=== PATIENT | male | born 1945 | race Two or more races ===

== ENCOUNTER 2017-04-28 20:00 | Emergency (ER) | payer OTHER ==
[~2017-04-28] VITALS: Ht 165.1 cm; Wt 65.8 kg
[~2017-04-28 20:00] MED LIST: CIPRO500 MG PO; DICLOXACILLIN500 MG PO; HUMALOG KW100 UNIT/1; INVOKANA100 MG; LANTUS100 U/ML; NOVOLOG100 U/ML; TAMSULOSIN HCL0.4 MG PO; TRAMADOL HCL50 MG PO
[2017-04-29] MEDS ORDERED: DOXYCYCLINE HY100 MG PO (13:19)
== END 2017-04-29 13:39 | disposition home or self-care (01) ==
LOC: ER 20:00
DX: R22.1 Localized swelling, mass and lump, neck (principal); R50.9 Fever, unspecified; E11.22 Type 2 diabetes mellitus with diabetic chronic kidney disease; I12.9 Hypertensive chronic kidney disease with stage 1 through stage 4 chronic kidney disease, or unspecified chronic kidney disease; N18.4 Chronic kidney disease, stage 4 (severe)

== ENCOUNTER 2017-08-04 09:37 | Emergency (ER) | payer OTHER ==
[~2017-08-04] VITALS: Ht 165.1 cm; Wt 67.1 kg
[~2017-08-04 09:37] MED LIST changes: +DOXYCYCLINE HY100 MG PO
== END 2017-08-04 16:00 | disposition home or self-care (01) ==
LOC: ER 09:37
DX: K29.60 Other gastritis without bleeding (principal); K29.80 Duodenitis without bleeding

== ENCOUNTER → 2017-09-20 | Emergency (ER) | payer OTHER ==
[~2017-09-20] VITALS: Ht 165.1 cm; Wt 65.8 kg
[~2017-09-20] MED LIST changes: +DIOVAN40 MG; +DOXYCYCLINE HY100 MG; +ENALAPRIL MALEA10 MG; +FLUCONAZOLE100 MG; +MECLIZINE HCL12.5 MG
== END | disposition home or self-care (01) ==
LOC: ER 17:07
DX: R42 Dizziness and giddiness (principal)

== ENCOUNTER 2017-10-20 18:07 | Inpatient (IN) | payer OTHER ==
[~2017-10-20] VITALS: Ht 165.1 cm; Wt 66.2 kg
[2017-12-06] MEDS ORDERED: INTEGRA F CAPS1 EACH PO (11:10)
[2017-12-06] MEDS ORDERED: TAMSULOSIN HCL0.4 MG PO (11:10)
[2017-12-06] MEDS ORDERED: PAROXETINE HCL10 MG PO (11:11)
[2017-12-06] MEDS ORDERED: SIMVASTATIN10 MG PO (11:11)
[2017-12-06] MEDS ORDERED: AVAPRO150 MG PO (11:11)
[2017-12-06] MEDS ORDERED: SLOW-MAG64 M1 PO (11:12)
[2017-12-06] MEDS ORDERED: CARdura 2MG TABLET PO (11:13)
[2017-12-06] MEDS ORDERED: NeurRONTin 100mg cap PO (11:13)
[2017-12-06] MEDS ORDERED: Intestinex CAP PO (11:13)
== END 2017-12-06 19:08 | disposition home health service (06) | DRG 264 ==
LOC: ER 18:07 → MEDJ 23:03 → SEC-K 23:03 → MEDJ 10-21 13:43
PROC: B44HZZZ Ultrasonography of Bilateral Lower Extremity Arteries (ICD-10-PCS; 2017-10-20)
PROC: 8E0ZXY6 Isolation (ICD-10-PCS; 2017-10-20)
PROC: BQ3MZZZ Magnetic Resonance Imaging (MRI) of Left Foot (ICD-10-PCS; 2017-10-21)
PROC: 0JBR0ZZ Excision of Left Foot Subcutaneous Tissue and Fascia, Open Approach (ICD-10-PCS; principal; 2017-10-29)
PROC: 30233N1 Transfusion of Nonautologous Red Blood Cells into Peripheral Vein, Percutaneous Approach (ICD-10-PCS; 2017-11-05)
PROC: 0JBR0ZZ Excision of Left Foot Subcutaneous Tissue and Fascia, Open Approach (ICD-10-PCS; 2017-11-09)
PROC: 02HV33Z Insertion of Infusion Device into Superior Vena Cava, Percutaneous Approach (ICD-10-PCS; 2017-11-22)
DX: E11.52 Type 2 diabetes mellitus with diabetic peripheral angiopathy with gangrene (principal); L97.528 Non-pressure chronic ulcer of other part of left foot with other specified severity; I70.262 Atherosclerosis of native arteries of extremities with gangrene, left leg; M86.172 Other acute osteomyelitis, left ankle and foot; L03.116 Cellulitis of left lower limb; N17.8 Other acute kidney failure; E11.621 Type 2 diabetes mellitus with foot ulcer; E11.22 Type 2 diabetes mellitus with diabetic chronic kidney disease; I12.9 Hypertensive chronic kidney disease with stage 1 through stage 4 chronic kidney disease, or unspecified chronic kidney disease; N18.1 Chronic kidney disease, stage 1; K29.60 Other gastritis without bleeding; K29.80 Duodenitis without bleeding; N40.0 Benign prostatic hyperplasia without lower urinary tract symptoms; D63.1 Anemia in chronic kidney disease; B96.89 Other specified bacterial agents as the cause of diseases classified elsewhere; Z16.24 Resistance to multiple antibiotics; E11.69 Type 2 diabetes mellitus with other specified complication; E11.65 Type 2 diabetes mellitus with hyperglycemia; B37.2 Candidiasis of skin and nail; Z86.73 Personal history of transient ischemic attack (TIA), and cerebral infarction without residual deficits; D50.8 Other iron deficiency anemias; Z89.422 Acquired absence of other left toe(s); L89.622 Pressure ulcer of left heel, stage 2; L89.612 Pressure ulcer of right heel, stage 2

== ENCOUNTER 2018-01-21 12:32 | Inpatient (IN) | payer OTHER ==
[~2018-01-21] VITALS: Ht 165.1 cm; Wt 65.8 kg
[~2018-01-21 12:32] MED LIST changes: +AVAPRO150 MG PO; +CARdura 2MG TABLET PO; +INTEGRA F CAPS1 EACH PO; +Intestinex CAP PO; +NeurRONTin 100mg cap PO; +PAROXETINE HCL10 MG PO; +SIMVASTATIN10 MG PO; +SLOW-MAG64 M1 PO
[2018-01-30] MEDS ORDERED: GABAPENTIN100 MG PO (16:30)
[2018-01-30] MEDS ORDERED: DOXAZOSIN MESYLA2 MG PO (16:31)
[2018-01-30] MEDS ORDERED: INTESTINEX680 M1 PO (16:32)
[2018-02-13] MEDS ORDERED: CARdura 4MG TABLET PO (13:25)
[2018-02-13] MEDS ORDERED: AMLODIPINE BESYL5 MG PO (13:25)
[2018-02-13] MEDS ORDERED: AVAPRO150 MG PO (13:25)
[2018-02-13] MEDS ORDERED: INTESTINEX680 M1 PO (13:25)
[2018-02-13] MEDS ORDERED: DEXAMETHASO4 MG/1 M1 PO (13:25)
[2018-02-13] MEDS ORDERED: NeurRONTin 100mg cap PO (13:25)
[2018-02-13] MEDS ORDERED: KEPPRA500 MG PO (13:25)
[2018-02-13] MEDS ORDERED: PRE PROTEIN 2030 ML PO (13:25)
[2018-02-13] MEDS ORDERED: INTEGRA F CAPS1 EACH PO (13:25)
[2018-02-13] MEDS ORDERED: Neurin-Sl Tablet Sl SL (13:25)
[2018-02-13] MEDS ORDERED: TAMSULOSIN HCL0.4 MG PO (13:25)
[2018-02-13] MEDS ORDERED: HumaLOG 100 UNIT/1 M SUBCUTANEO (13:25)
[2018-02-13] MEDS ORDERED: PYRIDOXINE HCL100 M1 PO (13:25)
[2018-02-13] MEDS ORDERED: Lantus 1000 UNITS/10 SUBCUTANEO (13:25)
== END 2018-02-13 19:34 | disposition home or self-care (01) | DRG 871 ==
LOC: ER 12:32 → ICU-2 01-22 10:32 → MEDI 01-27 13:04 → MEDJ 02-13 08:50 → MEDI 02-13 09:43
PROC: 4A12X4Z Monitoring of Cardiac Electrical Activity, External Approach (ICD-10-PCS; 2018-01-27)
PROC: 05H433Z Insertion of Infusion Device into Left Innominate Vein, Percutaneous Approach (ICD-10-PCS; 2018-01-30)
PROC: BW24ZZZ Computerized Tomography (CT Scan) of Chest and Abdomen (ICD-10-PCS; principal; 2018-02-08)
PROC: BW21ZZZ Computerized Tomography (CT Scan) of Abdomen and Pelvis (ICD-10-PCS; 2018-02-08)
DX: A41.9 Sepsis, unspecified organism (principal); L89.623 Pressure ulcer of left heel, stage 3; C79.31 Secondary malignant neoplasm of brain; N39.0 Urinary tract infection, site not specified; E11.52 Type 2 diabetes mellitus with diabetic peripheral angiopathy with gangrene; E24.8 Other Cushing's syndrome; J90 Pleural effusion, not elsewhere classified; J98.11 Atelectasis; C78.02 Secondary malignant neoplasm of left lung; C78.01 Secondary malignant neoplasm of right lung; K51.518 Left sided colitis with other complication; C07 Malignant neoplasm of parotid gland; B95.2 Enterococcus as the cause of diseases classified elsewhere; D44.11 Neoplasm of uncertain behavior of right adrenal gland; K52.89 Other specified noninfective gastroenteritis and colitis; N20.0 Calculus of kidney; N18.1 Chronic kidney disease, stage 1; I12.9 Hypertensive chronic kidney disease with stage 1 through stage 4 chronic kidney disease, or unspecified chronic kidney disease; E11.9 Type 2 diabetes mellitus without complications; E87.6 Hypokalemia; D64.89 Other specified anemias; I25.10 Atherosclerotic heart disease of native coronary artery without angina pectoris; N40.0 Benign prostatic hyperplasia without lower urinary tract symptoms; E11.621 Type 2 diabetes mellitus with foot ulcer; I95.9 Hypotension, unspecified; K29.60 Other gastritis without bleeding; K29.80 Duodenitis without bleeding; Z89.422 Acquired absence of other left toe(s); Z86.73 Personal history of transient ischemic attack (TIA), and cerebral infarction without residual deficits; Z79.4 Long term (current) use of insulin; L89.610 Pressure ulcer of right heel, unstageable; B95.61 Methicillin susceptible Staphylococcus aureus infection as the cause of diseases classified elsewhere